=== PATIENT | female | born 1990 | race Two or more races ===

== ENCOUNTER 2024-11-16 05:22 | Emergency (ER) | payer MEDICAID ==
[~2024-11-16] VITALS: Ht 170.2 cm; Wt 54.4 kg
[2024-11-16 05:34] VITALS: BP 115/68
[2024-11-16] MEDS ORDERED: FERRITIN (05:38)
[2024-11-16] MEDS ORDERED: ACETAMINOPHEN 500 MG TABLET ONE (06:01)
[2024-11-16] MEDS: ACETAMINOPHEN 500 MG TABLET PO ONE (06:06)
[2024-11-16 06:13] VITALS: BP 116/70; O2SAT 100
== END 2024-11-16 06:06 | disposition home or self-care (01) ==
LOC: ER 05:42
DX: M54.50 Low back pain, unspecified (principal)
CPT/HCPCS: A4606; A4663; A9150